=== PATIENT | male | born 1970 | race Caucasian/White ===

== ENCOUNTER 2017-05-25 03:55 | Emergency (ER) | payer OTHER ==
[2017-05-25 04:06] VITALS: BP 147/99
[2017-05-25] MEDS ORDERED: LIDOCAINE 1% 2 ML VIAL ONE (04:10)
--- NOTE | 2017-05-25 04:14 | ED Physician Documentation ---
PD HPI UPPER EXT INJURY - Stated complaint Stated Complaint: RT THUMB INJURY - Chief complaint Chief Complaint: General - History obtained from History obtained from: Patient, Family - History of Present Illness Location: Left, Finger Type of injury: Blunt / blow Where injury occurred: [place] Timing - onset: How many hours ago (6) Timing - details: Abrupt onset Worsened by: Palpating Associated symptoms: Swelling, Discolored Contributing factors: No: Anticoagulated, Prior ortho surgery, Prosthetic joint Similar symptoms before: Has not had sx before Recently seen: Not recently seen - Additonal information Additional information: Patient is a 46 year old male with no significant past medical history who is presenting to the emergency department for pain and swelling in his thumb. Patient stated that he crushed his thumb underneath a trailer hitch. patient developed a bruise under his thumb and now the swelling and pressure is causing too much pain that he couldn't sleep. Review of Systems Constitutional: denies: Fever Eyes: denies: Irritation Nose: denies: Epistaxis Throat: reports: Reviewed and negative Cardiac: reports: Reviewed and negative Respiratory: reports: Reviewed and negative GI: denies: Nausea, Vomiting Skin: reports: Lesions. denies: Laceration (s) Musculoskeletal: reports: Extremity pain, Extremity swelling Neurologic: denies: Generalized weakness, Focal weakness, Numbness, Difficulty speaking PD PAST MEDICAL HISTORY - Allergies Allergies/Adverse Reactions: Allergies Allergy/AdvReac Type Severity Reaction Status Date / Time No Known Drug Allergies Allergy Verified 05/25/17 04:05 PD ED PE NORMAL - Vitals Vital signs reviewed: Yes - General General: Alert and oriented X 3, No acute distress - HEENT HEENT: Atraumatic, PERRL - Neck Neck: Supple, no meningeal sign - Cardiac Cardiac: RRR, No murmur - Respiratory Respiratory: No respiratory distress - Abdomen Abdomen: Non distended - Neuro Neuro: Alert and oriented X 3, No motor deficit, No sensory deficit, Normal speech - Psych Psych: Normal mood, Normal affect PD ED PE EXPANDED - Extremities Extremities: Left finger(s) (subungal hematoma of 1st digit, full rom, no bony pain or deformity) Results - Vitals Vitals: Vital Signs - 24 hr 05/25/17 04:02 Temperature 36.3 C L Heart Rate 75 Respiratory 14 Rate Blood Pressure 147/99 H O2 Saturation 100 Oxygen O2 Source Room air Procedures - Regional nerve block Nerve block site: Digital - note digit(s) (1st digit) Right / left: Left Nerve block anesthesia: Lidocaine 1% Nerve block aftercare: Excellent anesthesia, Patient tolerated well, No complications PD MEDICAL DECISION MAKING - ED course Complexity details: re-evaluated patient, considered differential, d/w patient, d/w family ED course: Patient was seen and examined at bedside. digital block was performed and then patient's nail was cauterized to relieve the pressure. patient tolerated the treatment well and was stable for discharge with outpatient follow up. Departure - Departure Disposition: 01 Home, Self Care Clinical Impression: Subungual hematoma of digit of hand Condition: Good Instructions: ED Hematoma Subungual Follow-Up: primary,care provider [Other] - As Needed Comments: Your symptoms today were being caused by a subungal hematoma. Now that it is open the pain should subside. You should continue to ice your thumb and take motrin or tylenol as needed for pain. You should follow up with your pmd if your symptoms persist. You may return to the emergency department at any time for new, worsening or uncontrollable symptoms.
== END 2017-05-25 04:20 | disposition home or self-care (01) ==
LOC: ED 03:55
DX: S60.012A Contusion of left thumb without damage to nail, initial encounter (principal); W23.0XXA Caught, crushed, jammed, or pinched between moving objects, initial encounter; Y92.830 Public park as the place of occurrence of the external cause
CPT/HCPCS: 11740; 99282; 99283